=== PATIENT | female | born 1980 | race African-American/Black ===

== ENCOUNTER 2019-06-01 06:56 | Emergency (ER) | payer OTHER ==
[~2019-06-01] VITALS: Ht 165.1 cm; Wt 77.1 kg
[~2019-06-01 06:56] MED LIST: ACET-787 PO; CLON2TAB PO; LORA-476 PO
--- NOTE | 2019-06-01 06:59 | NUR ---
PT AMBULATED TO ER BED 04
[2019-06-01 07:06] VITALS: BP 119/75
--- NOTE | 2019-06-01 07:18 | NUR ---
38/F BIB SELF C/ON/V/D & LLQ ABD PAIN RADIATES TO LOWER BACK, FEVER X2 DAYS. MEDHX: PREVIOUSLY DIAGNOSED W/ SMALL BOWEL OBSTRUCTION, OVARIAN CANCER, PARTIAL HYSTERECTOMY, GALLBLADDER REMOVAL. PATIENT STATES PAIN OF 10/10 AT THIS TIME. PATIENT POSITIONED FOR COMFORT; HOB ELEVATED; BEDRAILS UP X1; BED DOWN. ER MD MADE AWARE OF PT STATUS.
[2019-06-01] MEDS ORDERED: NACL 0.9% 1,000 ML IV ONE (07:25)
[2019-06-01] MEDS ORDERED: MORPHINE SULFATE 10 MG/ML VIAL IVP ONE (07:40)
[2019-06-01] MEDS ORDERED: ONDANSETRON 4 MG/2 ML VIAL IVP ONE (07:40)
--- NOTE | 2019-06-01 08:08 | NUR ---
PT TAKEN TO CT VIA W/C, ACCOMPANIED BY HONING MACHINE OPERATOR TOOL.
[2019-06-01 08:58] LABS: BASOPHILS # (AUTO) 0.1 K/uL (0.00-0.22); BASOPHILS % (AUTO) 0.7 % (0.0-2.0); EOSINOPHILS # (AUTO) 0.3 K/uL (0-0.4); EOSINOPHILS % (AUTO) 2.8 % (0.0-4.0); HEMATOCRIT 38.6 % (36-48); MEAN CORPUSCULAR HEMOGLOBIN 29 pg (27-31); MEAN CORPUSCULAR HGB CONC 31 g/dL (33-37); MEAN CORPUSCULAR VOLUME 92.9 fL (80-94); MONOCYTES # (AUTO) 0.6 K/uL (0.8-1.0); NEUTROPHILS # (AUTO) 6.1 K/uL (1.8-7.7); NEUTROPHILS % (AUTO) 67.5 % (42.2-75.2); PLATELET COUNT (AUTO) 171 K/uL (140-450); RED BLOOD CELL COUNT(AUTO) 4.16 MIL/uL (4.20-5.40); RED CELL DISTRIBUTION WIDTH 13.8 % (11.6-13.7); WHITE BLOOD COUNT (AUTO) 9.1 K/uL (4.8-10.8)
--- NOTE | 2019-06-01 09:02 | NUR ---
LAB AT BEDSIDE.
[2019-06-01 09:06] LABS: APPEARANCE,URINE CLEAR (CLEAR); BILIRUBIN,URINE NEGATIVE (NEGATIVE); BLOOD, URINE NEGATIVE (NEGATIVE); COLOR,URINE YELLOW (YELLOW); LEUKOCYTE ESTERASE ,URINE NEGATIVE (NEGATIVE); NITRITE, URINE NEGATIVE (NEGATIVE); PH,URINE 7.5 (5.0-9.0); UGLUCOSE NEGATIVE (NEGATIVE)
[2019-06-01 09:10] LABS: ANION GAP 10.1 (8-16); CARBON DIOXIDE 25.3 mmol/L (21-32); CREATININE 0.8 mg/dL (0.6-1.3); POTASSIUM 4.4 mmol/L (3.5-5.1)
[2019-06-01 09:15] LABS: ALBUMIN 3.1 g/dL (3.4-5.0); TOTAL BILIRUBIN 0.4 mg/dL (0.0-1.0)
[2019-06-01 09:27] LABS: PROTHROMBIN TIME 9.2 secs (10.8-13.4)
[2019-06-01 10:54] VITALS: BP 114/74
--- NOTE | 2019-06-01 10:54 | NUR ---
Patient discharged with v/s stable. Written and verbal after care instructions given and explained. Patient alert, oriented and verbalized understanding of instructions. Ambulatory with steady gait. All questions addressed prior to discharge. ID band removed. Patient advised to follow up with PMD. Rx of motrin, acetaminophen & lactolose given. Patient educated on indication of medication including possible reaction and side effects. Opportunity to ask questions provided and answered.
== END 2019-06-01 10:54 | disposition home or self-care (01) ==
LOC: MED 06:56
DX: K59.00 Constipation, unspecified (principal); R11.10 Vomiting, unspecified; N83.202 Unspecified ovarian cyst, left side; Z88.8 Allergy status to other drugs, medicaments and biological substances; Z79.891 Long term (current) use of opiate analgesic; Z79.899 Other long term (current) drug therapy; Z90.49 Acquired absence of other specified parts of digestive tract; Z90.710 Acquired absence of both cervix and uterus; Z85.9 Personal history of malignant neoplasm, unspecified
CPT/HCPCS: 36415; 74176; 80053; 81003; 81025; 83690; 85025; 85610; 96361; 96374; 96375; 99284; J2270; J2405; J7030

== ENCOUNTER 2019-06-02 13:41 | Emergency (ER) | payer OTHER ==
[~2019-06-02] VITALS: Ht 165.1 cm; Wt 77.1 kg
[2019-06-02 14:13] VITALS: BP 139/90
--- NOTE | 2019-06-02 14:27 | NUR ---
PT BIB SELF FOR LOWER LEFT SIDE ABD PAIN, PT STATES SHE WAS SEE YESTERDAY FOR CONSTIPATION HAD A BM, BUT NOW HAS WORSE LOWER ABD PAIN W/ VOMIT. PT STATES SHE HAD PARTIAL HYSTERECTOMY FROM OVARIAN CA. PATIENT STATES PAIN OF 10/10 AT THIS TIME. PATIENT POSITIONED FOR COMFORT; HOB ELEVATED; BEDRAILS UP X1; BED DOWN. ER MD MADE AWARE OF PT STATUS.
[2019-06-02] MEDS ORDERED: MORPHINE SULFATE 4 MG/ML SYR IM ONE (15:35)
--- NOTE | 2019-06-02 15:54 | NUR ---
PT REFUSED BLOOD DRAWN. NOTIFIED DR WHYTE.
[2019-06-02 17:01] LABS: BASOPHILS % (AUTO) 0.6 % (0.0-2.0); EOSINOPHILS # (AUTO) 0.1 K/uL (0-0.4); EOSINOPHILS % (AUTO) 1.4 % (0.0-4.0); HEMATOCRIT 35.2 % (36-48); HEMOGLOBIN 11.4 g/dL (12.0-16.0); LYMPHOCYTES # (AUTO) 2.3 K/uL (2.5-16.5); LYMPHOCYTES % (AUTO) 30.7 % (20.5-51.1); MEAN CORPUSCULAR HEMOGLOBIN 29 pg (27-31); MEAN CORPUSCULAR HGB CONC 32 g/dL (33-37); MEAN CORPUSCULAR VOLUME 90.3 fL (80-94); MONOCYTES # (AUTO) 0.5 K/uL (0.8-1.0); MONOCYTES % (AUTO) 7.3 % (1.7-9.3); NEUTROPHILS # (AUTO) 4.5 K/uL (1.8-7.7); PLATELET COUNT (AUTO) 254 K/uL (140-450); RED CELL DISTRIBUTION WIDTH 13.9 % (11.6-13.7); WHITE BLOOD COUNT (AUTO) 7.5 K/uL (4.8-10.8)
[2019-06-02 17:22] LABS: APPEARANCE,URINE CLEAR (CLEAR); BILIRUBIN,URINE NEGATIVE (NEGATIVE); BLOOD, URINE NEGATIVE (NEGATIVE); COLOR,URINE YELLOW (YELLOW); LEUKOCYTE ESTERASE ,URINE NEGATIVE (NEGATIVE); NITRITE, URINE NEGATIVE (NEGATIVE); PH,URINE 8.5 (5.0-9.0); UGLUCOSE NEGATIVE (NEGATIVE)
[2019-06-02] MEDS ORDERED: MORPHINE SULFATE 4 MG/ML SYR IVP ONE ×2 (18:20→19:15)
[2019-06-02] MEDS ORDERED: NACL 0.9% 1,000 ML IV ONE (18:20)
[2019-06-02 18:21] LABS: POTASSIUM 3.5 mmol/L (3.5-5.1)
[2019-06-02 18:22] LABS: ANION GAP 12.8 (8-16); CARBON DIOXIDE 24.7 mmol/L (21-32); CREATININE 0.7 mg/dL (0.6-1.3)
[2019-06-02 18:23] LABS: ALBUMIN 3.1 g/dL (3.4-5.0); TOTAL BILIRUBIN 0.7 mg/dL (0.0-1.0)
[2019-06-02] MEDS ORDERED: ONDANSETRON 4 MG/2 ML VIAL IVP ONE (18:35)
--- NOTE | 2019-06-02 18:45 | NUR ---
IV 22GA RT ARM DONE, IVF/IVP PAIN MEDS GIVEN-NADR AT THIS TIME.
--- NOTE | 2019-06-02 19:15 | NUR ---
Pt report given to SHREYAS WILLARD. Transfer of care at this time.
--- NOTE | 2019-06-02 19:20 | NUR ---
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 OVERRODE MED FOR MORPHINE 6MG ORDER. TOTAL OF 8-4MG BOTTLES. PULLED 1 -4MG MORPHINE INSTEAD OF 2- 4MG ON THE 1ST WITHDRAW. PULLED THE 2ND MG MORPHINE TO COMPLETE THE 6MG. WITNESSED BY NEISHA. TOTAL OF 6-MG BOTTLES LEFT IN MED P[facility].
[2019-06-02 19:37] VITALS: BP 139/90
--- NOTE | 2019-06-02 19:37 | NUR ---
Patient discharged with v/s stable. Written and verbal after care instructions given and explained. Patient alert, oriented and verbalized understanding of instructions. Ambulatory with steady gait. All questions addressed prior to discharge. ID band removed. Patient advised to follow up with PMD. Rx of ZAPROSYN, ZOFRAN given. Patient educated on indication of medication including possible reaction and side effects. Opportunity to ask questions provided and answered.
== END 2019-06-02 19:37 | disposition home or self-care (01) ==
LOC: MED 13:41
DX: N83.202 Unspecified ovarian cyst, left side (principal); E86.0 Dehydration; Z71.6 Tobacco abuse counseling; F17.210 Nicotine dependence, cigarettes, uncomplicated; Z90.710 Acquired absence of both cervix and uterus; Z85.43 Personal history of malignant neoplasm of ovary; Z79.899 Other long term (current) drug therapy; Z79.891 Long term (current) use of opiate analgesic; Z88.8 Allergy status to other drugs, medicaments and biological substances
CPT/HCPCS: 36415; 76856; 80053; 81003; 85025; 93976; 96361; 96372; 96374; 96375; 96376; 99284; J2270; J2405; J7030; Q0092

== ENCOUNTER 2019-07-17 14:24 | Emergency (ER) | payer OTHER ==
[~2019-07-17] VITALS: Ht 165.1 cm; Wt 72.6 kg
[2019-07-17 14:27] VITALS: BP 159/93
--- NOTE | 2019-07-17 14:35 | NUR ---
PT AMBULATED TO ER BED 06
--- NOTE | 2019-07-17 14:49 | NUR ---
Note clareone in EDM - 07/17/19 at 1450 by [facility] Patient will be admitted to care of []. Admited to [g ED.ADMIT]. Will go to room[]. Belongings list completed. Report to [].
--- NOTE | 2019-07-17 14:50 | NUR ---
PATIENT PRESENTS TO ED WITH SUPRAPUBIC PAIN AND VAGINAL BLEEDING X 1 WEEK. PT DESCRIBES PAIN 10/10, SHARP [employer]ANT. PT ON OXYCODONE BUT HAS NOT TAKEN IT ADILIA 3 DAYS. SINCE THIS MORNING, PATIENT HAS SOAKED 2 PADS. PT WAS DISCHARGED FROM [facility] 07/15/19 DX: VULVOVAGINITIS. SEEN BY DR. WAHL. PER DR. WAHL TOLD TO GO TO ER IF SYMPTOMS PERSIST. +URINARY RETENTION, +N/V, +DIARRHEA, +SUBJECTIVE FEVER; VSS; PATIENT POSITIONED FOR COMFORT; HOB ELEVATED; BEDRAILS UP X2; BED DOWN. ER MD MADE AWARE OF PT STATUS. PMH: S/P HYSTERECTOMY 2013, S/P CHOLEDOCYSTECTOMY, R OVARIAN CA MEDS: OXYCODONE ALLERGIES: BENADRYL, GUAIFENSIN, IODINE
[2019-07-17] MEDS ORDERED: ONDANSETRON 4 MG/2 ML VIAL IVP ONE (15:35)
[2019-07-17] MEDS ORDERED: DIPHENOXYLATE /ATROPINE 2.5 MG TAB PO ONE (15:35)
[2019-07-17] MEDS ORDERED: NACL 0.9% 1,000 ML IV ONE (15:35)
[2019-07-17] MEDS ORDERED: KETOROLAC 15 MG/ML VIAL IVP ONE ×2 (15:35→17:05)
[2019-07-17 16:11] LABS: BASOPHILS % (AUTO) 0.5 % (0.0-2.0); EOSINOPHILS # (AUTO) 0.1 K/uL (0-0.4); EOSINOPHILS % (AUTO) 0.9 % (0.0-4.0); HEMATOCRIT 38.2 % (36-48); HEMOGLOBIN 12.5 g/dL (12.0-16.0); LYMPHOCYTES # (AUTO) 1.9 K/uL (2.5-16.5); LYMPHOCYTES % (AUTO) 19.5 % (20.5-51.1); MEAN CORPUSCULAR HEMOGLOBIN 29 pg (27-31); MEAN CORPUSCULAR HGB CONC 33 g/dL (33-37); MEAN CORPUSCULAR VOLUME 89.7 fL (80-94); MONOCYTES # (AUTO) 0.4 K/uL (0.8-1.0); MONOCYTES % (AUTO) 4.3 % (1.7-9.3); NEUTROPHILS # (AUTO) 7.2 K/uL (1.8-7.7); NEUTROPHILS % (AUTO) 74.8 % (42.2-75.2); PLATELET COUNT (AUTO) 278 K/uL (140-450); RED BLOOD CELL COUNT(AUTO) 4.26 MIL/uL (4.20-5.40); RED CELL DISTRIBUTION WIDTH 14.3 % (11.6-13.7); WHITE BLOOD COUNT (AUTO) 9.6 K/uL (4.8-10.8)
[2019-07-17 16:18] LABS: ANION GAP 13.9 (8-16); CARBON DIOXIDE 25.8 mmol/L (21-32); CREATININE 0.7 mg/dL (0.6-1.3); POTASSIUM 3.7 mmol/L (3.5-5.1)
[2019-07-17 16:24] LABS: ALBUMIN 3.8 g/dL (3.4-5.0); TOTAL BILIRUBIN 0.3 mg/dL (0.0-1.0)
[2019-07-17] MEDS ORDERED: LORA-476 PO (16:24)
[2019-07-17] MEDS ORDERED: OXYC5TAB4 PO ×2 (16:24→16:26)
[2019-07-17 16:32] LABS: APPEARANCE,URINE SL CLOUDY (CLEAR); BILIRUBIN,URINE NEGATIVE (NEGATIVE); BLOOD, URINE NEGATIVE (NEGATIVE); COLOR,URINE YELLOW (YELLOW); LEUKOCYTE ESTERASE ,URINE NEGATIVE (NEGATIVE); NITRITE, URINE NEGATIVE (NEGATIVE); PH,URINE 7.5 (5.0-9.0); UGLUCOSE NEGATIVE (NEGATIVE)
--- NOTE | 2019-07-17 16:52 | NUR ---
Dr. Disla is evaluating the patient at bedside.
[2019-07-17 17:11] VITALS: BP 132/88
--- NOTE | 2019-07-17 17:13 | NUR ---
PATIENT LEFT BEFORE BEING DISCHARGED FROM FACILITY. DISCHARGE INSTRUCTIONS NOT GIVEN TO PATIENT. PATIENT REMOVED HER IV. DR. GONZALES NOTIFIED.
--- NOTE | 2019-07-19 10:16 | NUR ---
Late entry. Confirmed with RN that 0.9 NS 1000 ml IV completed at 1712.
== END 2019-07-17 17:13 | disposition home or self-care (01) ==
LOC: MED 14:24
DX: R11.10 Vomiting, unspecified (principal); R19.7 Diarrhea, unspecified; R10.2 Pelvic and perineal pain; G89.29 Other chronic pain; F17.210 Nicotine dependence, cigarettes, uncomplicated; Z90.49 Acquired absence of other specified parts of digestive tract; Z90.710 Acquired absence of both cervix and uterus; Z85.43 Personal history of malignant neoplasm of ovary; Z79.899 Other long term (current) drug therapy; Z88.8 Allergy status to other drugs, medicaments and biological substances
CPT/HCPCS: 36415; 80053; 81003; 83605; 85025; 87040; 87086; 93005; 96361; 96374; 96375; 99284; J1885; J2405; J7030